=== PATIENT | male | born 1975 | race Caucasian/White ===

== ENCOUNTER 2017-10-20 17:19 | Emergency (ER) | payer SELFPAY ==
[2017-10-20 19:10] LABS: Bilirubin,Urine NEG (Negative); Blood,Urine SM (Negative); Color,Urine Yellow (Yellow); Mucus,Urine FEW /HPF; Protein,Urine <15 mg/dL mg/dL (Negative); Urobilinogen,Urine < 2.0 mg/dL (<2.0)
[2017-10-20 19:16] LABS: Basophils # (Auto) 0.1 K/mm3 (0.0-0.1); Basophils % (Auto) 0.4 % (0.0-1.8); Eosinophils % (Auto) 0.3 % (0.0-4.3); Hematocrit 44.8 % (35.5-45.6); Lymphocytes # (Auto) 1.8 K/mm3 (1.2-5.4); Lymphocytes % (Auto) 12.1 % (13.4-35.0); Mean Corpuscular HGB Conc 34 % (32-34); Mean Corpuscular Hemoglobin 28 pg (28-32); Mean Corpuscular Volume 84 fl (84-94); Monocytes # (Auto) 1.1 K/mm3 (0.0-0.8); Platelet Count 179 K/mm3 (140-440); Red Blood Count 5.33 M/mm3 (3.65-5.03); Red Cell Distribution Width 13.6 % (13.2-15.2)
[2017-10-20 19:29] LABS: Alanine Aminotransferase 29 units/L (7-56); Albumin 4.5 g/dL (3.9-5); BUN/Creatinine Ratio 17; Blood Urea Nitrogen 15 mg/dL (9-20); Calcium 9.3 mg/dL (8.4-10.2); Hemolysis Index 8; Lipase 36 units/L (13-60)
--- NOTE | 2017-10-21 01:08 | Emergency Department Report ---
ED Abdominal Pain HPI - General Chief Complaint: Abdominal Pain Stated Complaint: ABDOMINAL PAIN Time Seen by Provider: 10/21/17 01:06 Source: patient Mode of arrival: Ambulatory Limitations: No Limitations - History of Present Illness Initial Comments: 42-year-old man presents with 3 day history of persistent waxing and waning left flank pain radiating into the left groin, with a baseline dull ache, with severe exacerbations, regular basis. Patient's pain began resolving after he arrived in the emergency department, and he only has minimal discomfort at this time. He has not had any fever chills or diaphoresis MD Complaint: abdominal pain, flank pain -: Sudden Location: LLQ, L flank Radiation: LLQ, other (left groin) Migration to: no migration Severity: moderate, severe Severity scale (0 -10): 7 Quality: aching, sharp Consistency: constant, other (waxing and waning) Improves With: nothing Worsens With: nothing Context: other Associated Symptoms: nausea. denies: vomiting, diarrhea, chills, constipation, dysuria - Related Data Previous Rx's Medication Instructions Recorded Last Taken Type HYDROcodone/APAP 7.5-325 [[place] 1 each PO Q6HR PRN #15 tablet 10/21/17 Unknown Rx 7.5/325] Ondansetron [Zofran TAB] 8 mg PO Q8HR PRN #5 tablet 10/21/17 Unknown Rx Sulfamethoxazole/Trimethoprim 1 each PO BID #14 tablet 10/21/17 Unknown Rx [Bactrim DS TAB] Allergies Allergy/AdvReac Type Severity Reaction Status Date / Time No Known Allergies Allergy Unverified 10/20/17 17:41 ED Review of Systems ROS: Stated complaint: ABDOMINAL PAIN Other details as noted in HPI Constitutional: denies: chills, fever Eyes: denies: eye pain, eye discharge, vision change ENT: denies: ear pain, throat pain Respiratory: denies: cough, shortness of breath, wheezing Cardiovascular: denies: chest pain, palpitations Endocrine: no symptoms reported Gastrointestinal: abdominal pain. denies: nausea, diarrhea Genitourinary: denies: urgency, dysuria Musculoskeletal: denies: back pain, joint swelling, arthralgia Skin: denies: rash, lesions Neurological: denies: headache, weakness, paresthesias Psychiatric: denies: anxiety, depression Hematological/Lymphatic: denies: easy bleeding, easy bruising ED Past Medical Hx - Past Medical History Previous Medical History?: No Hx Kidney Stones: No - Surgical History Past Surgical History?: No - Family History Family history: no significant - Social History Smoking Status: Never Smoker Substance Use Type: None - Medications Home Medications: Home Medications Medication Instructions Recorded Confirmed Last Taken Type HYDROcodone/APAP 7.5-325 [[place] 1 each PO Q6HR PRN #15 tablet 10/21/17 Unknown Rx 7.5/325] Ondansetron [Zofran TAB] 8 mg PO Q8HR PRN #5 tablet 10/21/17 Unknown Rx Sulfamethoxazole/Trimethoprim 1 each PO BID #14 tablet 10/21/17 Unknown Rx [Bactrim DS TAB] ED Physical Exam - General Limitations: No Limitations General appearance: alert, in no apparent distress, other (moderately obese) - Head Head exam: Present: atraumatic, normocephalic - Eye Eye exam: Present: normal appearance - ENT ENT exam: Present: mucous membranes moist - Neck Neck exam: Present: normal inspection - Respiratory Respiratory exam: Present: normal lung sounds bilaterally. Absent: respiratory distress - Cardiovascular Cardiovascular Exam: Present: regular rate, normal rhythm. Absent: systolic murmur, diastolic murmur, rubs, gallop - GI/Abdominal GI/Abdominal exam: Present: soft, tenderness (mild left flank tenderness), normal bowel sounds. Absent: guarding, rebound - Rectal Rectal exam: Present: deferred - exam: Present: normal inspection - Extremities Exam Extremities exam: Present: normal inspection - Back Exam Back exam: Present: normal inspection - Neurological Exam Neurological exam: Present: alert, oriented X3 - Psychiatric Psychiatric exam: Present: normal affect, normal mood - Skin Skin exam: Present: warm, dry, intact, normal color. Absent: rash ED Course Vital Signs 10/20/17 17:37 Temperature 98.9 F Pulse Rate 72 Respiratory 18 Rate Blood Pressure 137/90 O2 Sat by Pulse 96 Oximetry - Reevaluation(s) Reevaluation #1: 10/21/17 01:46 Patient clinically stable at time of initial examination, only showing minimal left flank tenderness on percussion, no costovertebral angle tenderness, afebrile. Resting fairly comfortably at time of examination ED Medical Decision Making - Lab Data Result diagrams: 10/20/17 18:58 10/20/17 18:58 - Radiology Data Radiology results: image reviewed interpreted by me: Left perirenal stranding and dilatation, as well as ureteral dilatation on the left, there is a questionable appearance of a small 2-3 mm stone at the distal ureterovesical junction, suggestive of a minor kidney stone. - Medical Decision Making Patient has typical findings of kidney stone, for the past 3 days, with findings of hydronephrosis and hydroureter on left side, with perirenal stranding, and calcification at the distal UVJ area suggestive of a small stone. Patient has had significant relief of discomfort, but has likely passed a stone, it is clinically stable for discharge, urinalysis is otherwise negative , and blood work is also unremarkable. Patient will be treated for residual discomfort and nausea, recommended to rest and hydrate well over the weekend. He may resume regular activities if he is asymptomatic by the beginning of next week Critical Care Time: No Critical care attestation.: If time is entered above; I have spent that time in minutes in the direct care of this critically ill patient, excluding procedure time. ED Disposition Clinical Impression: Ureterolithiasis Hydronephrosis Qualifiers: Hydronephrosis type: with renal calculous obstruction Qualified Code(s): N13.2 - Hydronephrosis with renal and ureteral calculous obstruction Disposition: TO HOME OR SELFCARE Is pt being admited?: No Does the pt Need Aspirin: No Condition: Good Instructions: Kidney Stones (ED) Additional Instructions: Rest over the weekend, drink plenty of fluids, take medications as needed, but if you're feeling well by Monday, he may return to work without restrictions. Prescriptions: HYDROcodone/APAP 7.5-325 [[place] 7.5/325] 1 each PO Q6HR PRN #15 tablet PRN Reason: Pain Ondansetron [Zofran TAB] 8 mg PO Q8HR PRN #5 tablet PRN Reason: Nausea Sulfamethoxazole/Trimethoprim [Bactrim DS TAB] 1 each PO BID #14 tablet Referrals: PRIMARY CARE, [Primary Care Provider] - 3-5 Days Time of Disposition: 01:50 Print Language: FINNISH
--- NOTE | 2017-10-21 02:30 | Cat Scan Report ---
FINAL REPORT PROCEDURE: CT ABDOMEN PELVIS WO CON TECHNIQUE: Computerized axial tomography of the abdomen and pelvis was performed without intravenous contrast. This study is performed without intravascular contrast material and its sensitivity for abdominal and pelvic pathology, including neoplasms, inflammation, abscess, free fluid, thrombosis, arterial dissection and infarction, is reduced compared with a contrast enhanced study. HISTORY: severe pain radiating left flank to groin COMPARISON: No prior studies are available for comparison. FINDINGS: Visualized lower thorax: No significant abnormality. Liver: There is fatty infiltration of the liver. There is no mass.. Spleen: Normal size and attenuation. Gallbladder and biliary system: Normal. Pancreas: Normal. Adrenals: Normal. Kidneys: There is a 2 millimeter stone at the left ureteral vesical junction. There is moderate left hydronephrosis and hydroureter. There is a 2 millimeter nonobstructing stone in the right kidney.. GI tract: There is no bowel obstruction, colitis or enteritis. The appendix is not discretely visible.. Lymph nodes and mesentery: Normal. Vasculature: Normal. Bladder: Normal. Reproductive organs: Normal. Peritoneum: There is no ascites, free air, abscess or adenopathy.. Musculoskeletal structures: There is grade 1 anterior spondylolisthesis, loss of disc height and bilateral facet arthropathy and spondylolysis at L5-S1.. Other: None. IMPRESSION: There is fatty infiltration of the liver. There is no mass.. There is a 2 millimeter stone at the left ureteral vesical junction. There is moderate left hydronephrosis and hydroureter. There is a 2 millimeter nonobstructing stone in the right kidney.. There is no bowel obstruction, colitis or enteritis. The appendix is not discretely visible.. There is no ascites, free air, abscess or adenopathy.. .
[2017-10-21] MEDS ORDERED: BACTRIM DS PO ONE (04:05)
[2017-10-21 04:15] VITALS: BP 146/88
== END 2017-10-21 04:15 | disposition home or self-care (01) ==
LOC: ED 17:19
DX: N13.2 Hydronephrosis with renal and ureteral calculous obstruction (principal)
CPT/HCPCS: 36415; 74176; 80053; 81001; 83690; 85025